=== PATIENT | female | born 1950 | race Caucasian/White ===

== ENCOUNTER → 2022-07-03 11:28 | Outpatient (CLI) | payer MEDICAID, MEDICARE, SELFPAY | PROVIDERS: PCP Family Medicine; Visit Provider Ophthalmology | DX: Z01.812 Encounter for preprocedural laboratory examination (principal); Z20.822 Contact with and (suspected) exposure to COVID-19 | CPT/HCPCS: C9803; U0003; U0005 ==

== ENCOUNTER 2022-07-06 07:35 | Day surgery (SDC) | payer MEDICARE, SELFPAY ==
[2022-07-01 12:47] VITALS: BMI 25.4
[2022-07-06] VITALS (8 sets, daily range): BP systolic 132–173; BP diastolic 62–77; PULSE 53–66; RESP 16–18; TEMP 36.3–36.8; O2SAT 95–99
== END 2022-07-06 09:22 | disposition home or self-care (01) ==
LOC: OR 07:38
PROVIDERS: PCP Nurse Practitioner; Visit Provider Ophthalmology
PROC: (CPT 66984; principal; 2022-07-06 09:00)
DX: H25.813 Combined forms of age-related cataract, bilateral (principal)
CPT/HCPCS: 66984; V2632

== ENCOUNTER → 2022-07-17 09:40 | Outpatient (CLI) | payer MEDICARE, SELFPAY | PROVIDERS: Visit Provider Ophthalmology | DX: Z01.812 Encounter for preprocedural laboratory examination (principal); Z20.822 Contact with and (suspected) exposure to COVID-19 | CPT/HCPCS: C9803; U0003; U0005 ==

== ENCOUNTER → 2022-08-21 10:12 | Outpatient (CLI) | payer MEDICARE, SELFPAY | PROVIDERS: PCP Family Medicine; Visit Provider Ophthalmology | DX: Z01.812 Encounter for preprocedural laboratory examination (principal); Z20.822 Contact with and (suspected) exposure to COVID-19; H25.012 Cortical age-related cataract, left eye | CPT/HCPCS: C9803; U0003; U0005 ==

== ENCOUNTER 2022-08-24 10:43 | Day surgery (SDC) | payer MEDICARE, SELFPAY ==
[2022-07-14 10:06] VITALS: BMI 25.7
[2022-08-19 13:55] VITALS: BMI 25.7
[2022-08-24] VITALS (7 sets, daily range): BP systolic 119–177; BP diastolic 56–73; PULSE 53–62; RESP 16–18; TEMP 36.8–36.9; O2SAT 93–99
== END 2022-08-24 12:32 | disposition home or self-care (01) ==
LOC: OR 10:45
PROVIDERS: PCP Nurse Practitioner; Visit Provider Ophthalmology
DX: H26.9 Unspecified cataract (principal); Z79.899 Other long term (current) drug therapy
CPT/HCPCS: 66984; V2632